=== PATIENT | female | born 1995 | race African-American/Black ===

== ENCOUNTER 2017-11-08 21:10 | Emergency (ER) | payer OTHER ==
[2017-11-08 21:25] VITALS: BP 114/57
--- NOTE | 2017-11-08 21:35 | UC ---
Respiratory Complaint HPI - HPI Summary HPI Summary: 22 year old female with C/o cough for a couple of weeks and a build up of mucous in the last few days. She tried NyQuil and cough drops. Sometimes she feels like her chest is tight. She does not have a hx of asthma. Was getting better last week but now cough more prominent and productive. [ End ] - History of Current Complaint Chief Complaint: UCRespiratory Stated Complaint: MUCUS,RAFA Time Seen by Provider: 11/08/17 21:23 Hx Obtained From: Patient ?: No Onset/Duration: Gradual Onset Timing: Constant Severity Initially: Mild Severity Currently: Moderate Character: Cough: Productive Aggravating Factors: Nothing Alleviating Factors: Nothing Associated Signs And Symptoms: Positive: Nasal Congestion - Allergies/Home Medications Allergies/Adverse Reactions: Allergies Allergy/AdvReac Type Severity Reaction Status Date / Time No Known Allergies Allergy Verified 11/08/17 21:25 Home Medications: Home Medications Pediatric Multiple Vitamins W/ [Multivitamin Plus Iron Ch 18 mg] 1 chw PO DAILY 11/08/17 [History Confirmed 11/08/17] PMH/Surg Hx/FS Hx/Imm Hx Previously Healthy: Yes - Surgical History Surgical History: None - Family History Known Family History: Positive: None - Social History Occupation: Employed Full-time Alcohol Use: Weekly Substance Use Type: None, Marijuana Smoking Status (MU): Current Every Day Smoker Review of Systems Constitutional: Fatigue ENT: Nasal Discharge, Sinus Congestion Respiratory: Cough All Other Systems Reviewed And Are Negative: Yes Physical Exam Triage Information Reviewed: Yes Appearance: Well-Appearing, No Pain Distress, Well-Nourished Vital Signs: Initial Vital Signs Temp 98.2 F 11/08/17 21:22 Pulse 80 11/08/17 21:22 Resp 16 11/08/17 21:22 BP 114/57 11/08/17 21:22 Pulse Ox 98 11/08/17 21:22 Eye Exam: Normal ENT Exam: Normal Dental Exam: Normal Neck exam: Normal Neck: Positive: 1 Respiratory Exam: Normal Cardiovascular Exam: Normal Musculoskeletal Exam: Normal Neurological Exam: Normal Psychological Exam: Normal Skin Exam: Normal UC Diagnostic Evaluation - Laboratory O2 Sat by Pulse Oximetry: 98 Respiratory Course/Dx - Differential Dx/Diagnosis Differential Diagnosis/HQI/PQRI: Bronchitis, Sinusitis Provider Diagnoses: Bronchitis Discharge - Discharge Plan Condition: Good Disposition: HOME Prescriptions: Amoxicillin PO (*) [Amoxicillin 875 MG (*)] 875 mg PO BID #20 tab Benzonatate [Benzonatate 200 MG] 200 mg PO TID PRN #20 cap PRN Reason: Cough Patient Education Materials: Acute Bronchitis (ED) Forms: *Work Release Additional Instructions: Please seek care if your symptoms do not improve. PLEASE QUIT SMOKING!!!
[2017-11-08] MEDS ORDERED: Amoxicillin PO (*) 500 MG CAP PO ONE (21:39)
== END 2017-11-08 21:54 | disposition home or self-care (01) ==
LOC: UCCORT 21:10
DX: J40 Bronchitis, not specified as acute or chronic (principal); F12.10 Cannabis abuse, uncomplicated
CPT/HCPCS: 99202; A9270-GY; G0463